=== PATIENT | male | born 1950 | race Caucasian/White ===

== ENCOUNTER 2023-11-12 16:35 | Emergency (ER) | payer OTHER ==
--- NOTE | 2023-11-12 17:36 | EDPHYS ---
Physician Documentation [facility] Name: Yves Dumont Age: 73 yrs Sex: Male : 1950 Arrival Date: 11/12/2023 Time: 16:35 Bed 19 Private MD: ED Physician Hardeep Quinones HPI: 11/11 17:46 This 73 yrs old Male presents to ER via Ambulatory with complaints of Post Surgical kb Bleeding. 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 States his paperwork says to go to the ER for any bleeding so that is why he came in. States he was talking on the phone when he felt his shirt become wet. Denies any strenuous activity. States he had a robot assisted radical prostatectomy on 11/02/23, followed up with surgeon on 11/09/23. Denies any other problems or bleeding since surgery. . Historical: - Allergies: 16:52 Sulfa (Sulfonamide Antibiotics); iw - PMHx: 16:52 prostate cancer; iw - Immunization history:: Adult Immunizations not up to date. - Infectious Disease History:: Denies. - Social history:: Smoking status: Patient denies any tobacco usage or history of. ROS: 17:37 Constitutional: As per HPI kb Exam: 17:40 Constitutional: This is a well developed, well nourished patient who is awake, alert, kb and in no acute distress. Head/Face: Normocephalic, atraumatic. ENT: Moist Mucous membranes Respiratory: Respirations even and unlabored. No increased work of breathing. Talking in full sentences Skin: Warm, dry with normal turgor. Normal color. MS/ Extremity: Pulses equal, no cyanosis. Neurovascular intact. Full, normal range of motion. Neuro: Awake and alert, GCS 15, oriented to person, place, time, and situation. Moves all extremities. Normal gait. 17:40 Cardiovascular: Rate: tachycardic, actual rate is 102 bpm, 17:40 Abdomen/GI: Inspection: bruising, anterior aspect of right lateral abdomen, posterior aspect of right lateral abdomen and right lower quadrant, Bowel sounds: normal, Palpation: soft, in all quadrants, mild abdominal tenderness, in the anterior aspect of right lateral abdomen, posterior aspect of right lateral abdomen and right lower quadrant, Vital Signs: 16:51 BP 158 / 86; Pulse 102; Resp 18; Temp 97.8; Pulse Ox 99% on R/A; iw 17:52 BP 127 / 75; Pulse 91; Resp 16; Temp 97.9(O); Pulse Ox 97% on R/A; Pain 0/10; tl4 17:52 Pain Scale: Adult tl4 MDM: 16:58 Patient medically screened. kb 17:40 Differential diagnosis: Wound dehiscence, hemoperitoneum, postop infection. Data kb reviewed: vital signs, nurses notes. 17:44 Test considered but Not performed: Labs: CBC and CMP considered but patient prefers not kb to have any testing done at this time. States he came just for the bleeding of his incision site and we have already taken care of that so he would like to go home. Pt will call surgeon on Tuesday morning. CT: CT abd/pelvis considered to rule out hemoperitoneum but patient states the bruising and mild tenderness has been present since surgery, his surgeon is seen it and was not concerned so he does not want to have a CT at this time. Patient will return for any new symptoms including pain, fever. Counseling: I had a detailed discussion with the patient and/or guardian regarding the historical points, exam findings, and any diagnostic results supporting the discharge/admit diagnosis, the need for outpatient follow up, a family practitioner, to return to the emergency department if symptoms worsen or persist or if there are any questions or concerns that arise at home. ED course: At bedside to reassess patient. Patient remains awake, alert and at baseline mentation. Patient appears stable. Patient exhibits no visible signs of distress. Patient respirations even and unlabored. I discussed patient's diagnosis, differential diagnosis, expected course of illness, at home recommendations and strict return precautions. I advised patient to follow-up with PCP in 2 to 3 days. I emphasized the need for close outpatient follow-up and care from primary care provider/specialist and went through careful and detailed return precautions with patient. Patient expressed full understanding of such and agrees with plan for discharge today. Feel patient is stable and appropriate for discharge and ongoing management of condition at home at this time.. Administered Medications: No medications were administered Disposition: 18:32 Co-signature as Attending Physician, Hardeep Quinones MD I reviewed the patient's care rt provided by the Advanced Practice Provider and agree with the diagnosis and treatment plan. Disposition Summary: 11/12/23 17:36 Discharge Ordered Notes: Location: Home kb Condition: Stable kb Diagnosis - Bleeding from surgical site kb Followup: kb - With: Private Physician - When: 2 - 3 days - Reason: Recheck today's complaints, Continuance of care, Re-evaluation by your physician Followup: kb - With: Emergency Department - When: As needed - Reason: Worsening of condition Discharge Instructions: - Discharge Summary Sheet kb - Wound Dehiscence, [id number] kb - How to Change Your Wound Dressing, [id number] kb Forms: - Medication Reconciliation Form kb - Thank You Letter kb - Patient Portal Instructions kb - Leadership Thank You Letter kb Signatures: Dispatcher [employer] Mayi Adair, TUNDE-Clara GRIFFITHS-Kerry Jaimes RN RN iw Hardeep Quinones MD MD rt Corrections: (The following items were deleted from the chart) 17:51 17:13 IV Saline Lock ordered. kb tl4
--- NOTE | 2023-11-12 17:36 | ER ---
Nurse's Notes [facility] Name: Yves Dumont Age: 73 yrs Sex: Male : 1950 Arrival Date: 11/12/2023 Time: 16:35 Bed 19 Private MD: Diagnosis: Bleeding from surgical site Presentation: 11/11 16:51 Chief complaint: Patient states: had prostatectomy on 11-01 at [facility] today the surgical laparoscopic site opened up on right side and has been bleeding. Coronavirus screen: At this time, the client does not indicate any symptoms associated with coronavirus-19. Ebola Screen: No symptoms or risks identified at this time. Initial Sepsis Screen: Does the patient meet any 2 criteria? No. Patient's initial sepsis screen is negative. Does the patient have a suspected source of infection? No. Patient's initial sepsis screen is negative. Risk Assessment: Do you want to hurt yourself or someone else? Patient reports no desire to harm self or others. Onset of symptoms was November 12, 2023. 16:51 Method Of Arrival: Ambulatory 16:51 Acuity: ANTHONY 3 iw Historical: - Allergies: 16:52 Sulfa (Sulfonamide Antibiotics); iw - PMHx: 16:52 prostate cancer; iw - Immunization history:: Adult Immunizations not up to date. - Infectious Disease History:: Denies. - Social history:: Smoking status: Patient denies any tobacco usage or history of. Screenin:22 [facility] ED Fall Risk Assessment (Adult) History of falling in the last 3 months, tl4 including since admission No falls in past 3 months (0 pts) Confusion or Disorientation No (0 pts) Intoxicated or Sedated No (0 pts) Impaired Gait No (0 pts) Mobility Assist Device Used No (0 pt) Altered Elimination No (0 pt) Score/Fall Risk Level 0 - 2 = Low Risk Oriented to surroundings, Maintained a safe environment, Educated pt \T\ family on fall prevention, incl call for assistance when getting out of bed, Assessed \T\ reinforced patient's understanding of fall precautions, Hourly rounding (assess needs \T\ fall precautionary measures) done, Used ambulatory aids as needed (educated on \T\ assisted with), Used gait belt as appropriate. Abuse screen: Denies threats or abuse. Denies injuries from another. Nutritional screening: No deficits noted. Tuberculosis screening: No symptoms or risk factors identified. Assessment: 17:10 General: Appears in no apparent distress. Behavior is calm, cooperative. Pain: Denies tl4 pain. Neuro: Level of Consciousness is awake, alert, obeys commands, Oriented to person, place, time, situation, Moves all extremities. Gait is steady, Speech is normal, Facial symmetry appears normal. Cardiovascular: Capillary refill < 3 seconds Patient's skin is warm and dry. Respiratory: Airway is patent Respiratory effort is even, unlabored, Respiratory pattern is regular, symmetrical, Breath sounds are clear bilaterally. GI: No signs and/or symptoms were reported involving the gastrointestinal system. : No signs and/or symptoms were reported regarding the genitourinary system. EENT: No signs and/or symptoms were reported regarding the EENT system. Derm: No signs and/or symptoms reported regarding the dermatologic system. Musculoskeletal: No signs and/or symptoms reported regarding the musculoskeletal system. Vital Signs: 16:51 BP 158 / 86; Pulse 102; Resp 18; Temp 97.8; Pulse Ox 99% on R/A; iw 17:52 BP 127 / 75; Pulse 91; Resp 16; Temp 97.9(O); Pulse Ox 97% on R/A; Pain 0/10; tl4 17:52 Pain Scale: Adult tl4 ED Course: 16:37 Patient arrived in ED. mr 16:52 Triage completed. iw 16:52 Arm band placed on. iw 16:58 Mayi Austin FNP-C is [facility]. kb 16:58 Hardeep Quinones MD is Attending Physician. kb 17:05 Dave Hargrove, MYRIAM is Primary Nurse. tl4 17:30 Patient has correct armband on for positive identification. Placed in gown. Bed in low tl4 position. Call light in reach. Side rails up X 1. Adult w/ patient. Provided Education on: ED process. Client placed on continuous cardiac and pulse oximetry monitoring. NIBP monitoring applied. Door closed. Noise minimized. Moved to private room. 17:55 No provider procedures requiring assistance completed. Patient did not have IV access tl4 during this emergency room visit. Administered Medications: No medications were administered Medication: 17:05 VIS not applicable for this client. tl4 Outcome: 17:36 Discharge ordered by MD. kb 17:55 Discharged to home ambulatory, with family, tl4 17:55 Condition: good 17:55 Discharge instructions given to patient, family, Instructed on discharge instructions, follow up and referral plans. Demonstrated understanding of instructions, follow-up care, 17:55 Patient left the ED. tl4 Signatures: Mayi Austin, DUAL RATE DEALER-C DUAL RATE DEALER-Ckb Izabel Linares, Reg Reg mr Kerry Huerta, RN RN iw Dave Hargrove RN RN tl4
[2023-11-12 18:31] VITALS: BP 127/75; TEMP 97.9; O2SAT 97
== END 2023-11-12 17:55 | disposition home or self-care (01) ==
LOC: ER 16:35
DX: L76.22 Postprocedural hemorrhage of skin and subcutaneous tissue following other procedure (principal); Z98.890 Other specified postprocedural states; Z85.46 Personal history of malignant neoplasm of prostate; Z88.2 Allergy status to sulfonamides
CPT/HCPCS: 99283

== ENCOUNTER 2023-11-13 12:59 | Emergency (ER) | payer OTHER ==
--- NOTE | 2023-11-13 16:24 | ER ---
Nurse's Notes [facility] Name: Yves Dumont Age: 73 yrs Sex: Male : 1950 Arrival Date: 11/13/2023 Time: 12:59 Bed IW9 Private MD: Diagnosis: Postsurgical bleeding Presentation: 11/12 13:08 Chief complaint: Patient states: Prostatectomy 10. 1 suture site opened up and he ll1 came here yesterday. Came today for wound recheck and dressing change. No fever. Coronavirus screen: Client denies travel out of the [place] in the last 14 days. At this time, the client does not indicate any symptoms associated with coronavirus-19. Ebola Screen: Patient denies travel to an Ebola-affected area in the 21 days before illness onset. Initial Sepsis Screen: Does the patient meet any 2 criteria? No. Patient's initial sepsis screen is negative. Does the patient have a suspected source of infection? No. Patient's initial sepsis screen is negative. Risk Assessment: Do you want to hurt yourself or someone else? Patient reports no desire to harm self or others. Onset of symptoms was November 12, 2023. 13:08 Method Of Arrival: Ambulatory ll1 13:08 Acuity: ANTHONY 4 ll1 Triage Assessment: 13:10 General: Appears in no apparent distress. Behavior is calm, cooperative, appropriate ll1 for age. Pain: Denies pain. Derm: Reports R sided abdominal wound was draining blood yesterday, scant drainage today. No fevers. Historical: - Allergies: 13:09 Sulfa (Sulfonamide Antibiotics); ll1 - PMHx: 13:09 Prostate Cancer; ll1 - PSHx: 13:09 prostatectomy (Prostate Cancer); ll1 - Immunization history:: Adult Immunizations up to date. - Infectious Disease History:: Denies. - Social history:: Smoking status: Patient denies any tobacco usage or history of. Assessment: 15:00 Reassessment: not in lobby when called to room. ll1 Vital Signs: 13:08 BP 154 / 103; Pulse 89; Resp 17; Temp 97.1; Pulse Ox 99% ; ll1 ED Course: 13:03 Patient arrived in ED. rg4 13:04 Nett[facility]varez [facility] 7 13:04 Hardeep uQinones MD is Attending Physician. 7 13:09 Triage completed. ll1 13:10 Arm band placed on Patient placed in an exam room, on a stretcher. 1 16:24 Kerry Huerta, RN is Primary Nurse. iw Administered Medications: No medications were administered Outcome: 16:24 Discharge ordered by . 7 16:25 Patient left the ED. iw Signatures: Kerry Huerta, RN RN Zuleyma Bar 4 Nikita Casey RN RN 1 Nettie Alvarez, WEB PRESS ROLL TENDER WEB PRESS ROLL TENDER [facility]
--- NOTE | 2023-11-13 16:24 | EDPHYS ---
Physician Documentation [facility] Name: Yves Dumont Age: 73 yrs Sex: Male : 1950 Arrival Date: 11/13/2023 Time: 12:59 Bed IW9 Private MD: ED Physician Hardeep Quinones HPI: 11/12 13:08 This 73 yrs old Male presents to ER via Ambulatory with complaints of Wound Check. 7 13:08 The patient reports that he had a laparoscopic radical prostatectomy on November 01. He jh7 reports that the surgical wound began to bleed yesterday around 3 PM. He was seen yesterday evening and the dressing was changed. He request another dressing change and would like the site assessed before he sees his surgeon tomorrow. Denies fever. Historical: - Allergies: 13:09 Sulfa (Sulfonamide Antibiotics); ll1 - PMHx: 13:09 Prostate Cancer; ll1 - PSHx: 13:09 prostatectomy (Prostate Cancer); ll1 - Immunization history:: Adult Immunizations up to date. - Infectious Disease History:: Denies. - Social history:: Smoking status: Patient denies any tobacco usage or history of. ROS: 13:08 Constitutional: Per HPI jh7 Exam: 13:08 Constitutional: This is a well developed, well nourished patient who is awake, alert, jh7 and in no acute distress. Head/Face: Normocephalic, atraumatic. Eyes: Pupils equal round and reactive to light, extra-ocular motions intact. Lids and lashes normal. Conjunctiva and sclera are non-icteric and not injected. Cornea within normal limits. Periorbital areas with no swelling, redness, or edema. Neck: Trachea midline, no thyromegaly or masses palpated, and no cervical lymphadenopathy. Supple, full range of motion without nuchal rigidity, or vertebral point tenderness. No Meningismus. Cardiovascular: Regular rate and rhythm with a normal S1 and S2. No gallops, murmurs, or rubs. Normal PMI, no JVD. No pulse deficits. Respiratory: Lungs have equal breath sounds bilaterally, clear to auscultation and percussion. No rales, rhonchi or wheezes noted. No increased work of breathing, no retractions or nasal flaring. Back: No spinal tenderness. No costovertebral tenderness. Full range of motion. Skin: Warm, dry with normal turgor. Normal color with no rashes, no lesions, and no evidence of cellulitis. MS/ Extremity: Pulses equal, no cyanosis. Neurovascular intact. Full, normal range of motion. Neuro: Awake and alert, GCS 15, oriented to person, place, time, and situation. Normal gait. 13:08 Skin: Wound recheck: Surgical site on right side of the abdomen with dried blood noted on the gauze. The wound has minimal bleeding and no signs or symptoms of infection., Vital Signs: 13:08 BP 154 / 103; Pulse 89; Resp 17; Temp 97.1; Pulse Ox 99% ; ll1 MDM: 13:05 Patient medically screened. jh7 14:00 Differential diagnosis: Surgical wound complication, patient in need of dressing 7 change. Data reviewed: vital signs, nurses notes. ED course: Was informed by the nurse that the patient left before he could be called back for his dressing change. Discharge paperwork printed.. 11/12 13:11 Order name: Dressing - Wound: surgicel and gauze with paper tape [facility] Administered Medications: No medications were administered Disposition: 19:22 Co-signature as Attending Physician, Hardeep Quinones MD I reviewed the patient's care rt provided by the Advanced Practice Provider and agree with the diagnosis and treatment plan. Disposition Summary: 11/13/23 16:24 Discharge Ordered Notes: Location: Home [facility] Problem: new [facility] Symptoms: are unchanged jh Condition: Stable jh7 Diagnosis - Postsurgical bleeding [facility] Followup: [facility] - With: Private Physician - When: Tomorrow - Reason: Recheck today's complaints Discharge Instructions: - Discharge Summary Sheet [facility] - Laparoscopic Radical Prostatectomy, Care After jh7 - Laparoscopic Radical Prostatectomy [facility] Forms: - Medication Reconciliation Form 7 - Thank You Letter [facility] - Patient Portal Instructions [facility] - Leadership Thank You Letter [facility] Signatures: Nikita Casey RN RN 1 Nettie Alvarez FNP COSTUME SPECIALIST [facility] Hardeep Quinones MD MD rt Corrections: (The following items were deleted from the chart) 16:20 13:08 The patient reports that he had a laparoscopic radical prostatectomy on November 01. jh7 He reports that the surgical wound began to bleed yesterday around 3 PM. He was seen yesterday evening and the dressing was changed. He request another dressing change and would like the site assessed before he sees his surgeon tomorrow.. jh7
[2023-11-13 16:46] VITALS: BP 154/103; TEMP 97.1; O2SAT 99
== END 2023-11-13 16:25 | disposition home or self-care (01) ==
LOC: ER 12:59
DX: L76.22 Postprocedural hemorrhage of skin and subcutaneous tissue following other procedure (principal); Z85.46 Personal history of malignant neoplasm of prostate; Z88.2 Allergy status to sulfonamides
CPT/HCPCS: 99281

== ENCOUNTER 2024-07-04 08:54 | Emergency (ER) | payer OTHER ==
--- NOTE | 2024-07-04 09:24 | RAD REPORT ---
EXAM: Hand Left 3 View HISTORY: Trauma;Pain COMPARISON: None FINDINGS: Bones: No acute fracture identified. Alignment:No significant malalignment. Degenerative changes:Degenerative changes present.. This is most pronounced at the DIP joints and at the base of the thumb where the findings are moderate. Other: Soft tissue laceration to the tip of the third finger. No radiopaque foreign body. IMPRESSION: No evidence of acute osseous abnormality involving the imaged hand.
[2024-07-04] MEDS ORDERED: TDAP (DIPHTH,PERTUSS(ACELL),TET VAC) 0.5 ML VIAL IMVAC ONE (09:35)
[2024-07-04] MEDS ORDERED: LIDOCAINE 1% 20 ML MDV ONE (09:47)
[2024-07-04] MEDS ORDERED: LIDOCAINE 1% MPF 30 ML VIAL ONE (09:50)
--- NOTE | 2024-07-04 10:02 | ER ---
Nurse's Notes [facility] Name: Yves Dumont Age: 74 yrs Sex: Male : 1950 Arrival Date: 07/04/2024 Time: 08:54 Bed 6 Private MD: Diagnosis: Hand Laceration/ Open wound of hand Presentation: 07/04 09:07 Chief complaint: Patient states: LEFT HAND 1ST AND 2ND FINGER DISTAL INJURY WITH TABLE bp SAW. Coronavirus screen: At this time, the client does not indicate any symptoms associated with coronavirus-19. Ebola Screen: No symptoms or risks identified at this time. Complicating Factors: There are no complicating factors for this patient. Initial Sepsis Screen: Does the patient meet any 2 criteria? No. Patient's initial sepsis screen is negative. Does the patient have a suspected source of infection? No. Patient's initial sepsis screen is negative. Risk Assessment: Do you want to hurt yourself or someone else? Patient reports no desire to harm self or others. Onset of symptoms was July 04, 2024 at 07:15. 09:07 Method Of Arrival: Ambulatory bp 09:07 Acuity: ANTHONY 3 bp Triage Assessment: 09:07 General: Appears in no apparent distress. Behavior is calm, cooperative, appropriate bp for age. Pain: Complains of pain in left index fingernail and left middle fingernail. EENT: No deficits noted. Neuro: No deficits noted. Cardiovascular: No deficits noted. Respiratory: No deficits noted. GI: No signs and/or symptoms were reported involving the gastrointestinal system. : No signs and/or symptoms were reported regarding the genitourinary system. Derm: No deficits noted. Musculoskeletal: No deficits noted. Injury Description: Laceration sustained to left index fingernail and left middle fingernail. Historical: - Allergies: 09:02 Sulfa (Sulfonamide Antibiotics); ll1 - PMHx: 09:02 Prostate Cancer; ll1 - PSHx: 09:02 prostatectomy (te); ll1 - Immunization history:: Adult Immunizations up to date. - Infectious Disease History:: Denies. - Social history:: Smoking status: Patient denies any tobacco usage or history of. Screenin:09 [facility] ED Fall Risk Assessment (Adult) History of falling in the last 3 months, bp including since admission No falls in past 3 months (0 pts) Confusion or Disorientation No (0 pts) Intoxicated or Sedated No (0 pts) Impaired Gait No (0 pts) Mobility Assist Device Used No (0 pt) Altered Elimination No (0 pt) Score/Fall Risk Level 0 - 2 = Low Risk Oriented to surroundings. Abuse screen: Denies threats or abuse. Denies injuries from another. Nutritional screening: No deficits noted. Tuberculosis screening: No symptoms or risk factors identified. Assessment: 09:09 General: Appears in no apparent distress. Behavior is calm, cooperative, appropriate bp for age. 09:10 Injury Description: Laceration sustained to left index fingernail is jagged, 0.5 to 2.5 bp cm long, not bleeding, is bleeding a small amount. Vital Signs: 09:07 BP 162 / 105; Pulse 87; Resp 16; Temp 98; Pulse Ox 100% ; Weight 86.18 kg; Height 5 ft. bp 8 in. ; 09:07 Body Mass Index 28.89 (86.18 kg, 172.72 cm) bp ED Course: 08:57 Patient arrived in ED. sj2 08:59 Alex Shaffer DO is Attending Physician. ms3 09:02 Arm band placed on Patient placed in an exam room, on a stretcher. ll1 09:07 Connor Gates, RN is Primary Nurse. bp 09:08 Triage completed. bp 09:09 Patient has correct armband on for positive identification. bp 09:21 Hand Left 3 View XRAY In Process Unspecified. EDMS 10:02 Spike Rodriguez DO is Referral Physician. ms3 10:27 No provider procedures requiring assistance completed. Patient did not have IV access bp during this emergency room visit. Wound care: to laceration was cleaned with Betadine, dressed with Neosporin, Patient tolerated well. 10:28 Provided Education on: na. bp Administered Medications: 09:43 Drug: Boostrix Tdap IM 0.5 ml IM once; as a single dose Route: IM; Site: right deltoid; ap3 10:04 Follow up: Response: No adverse reaction bp 10:04 Drug: Lidocaine Infiltration (1 %) 10 ml 20 ml Infiltration once; to bedside {Note: AT bp BEDSIDE.} Volume: 20 ml; Route: Infiltration; Medication: 09:09 VIS not applicable for this client. bp Outcome: 10:02 Discharge ordered by . ms3 10:27 Discharged to home ambulatory, bp 10:27 Condition: stable 10:27 Discharge instructions given to patient, Instructed on discharge instructions, follow up and referral plans. wound care, Demonstrated understanding of instructions, follow-up care, medications, wound care, 10:28 Patient left the ED. bp Signatures: Dispatcher [employer] EDMS Connor Gates RN RN bp Naya Mendez RN RN albert3 Nikita Casey RN RN ll1 Alex Shfafer DO DO ms3 Yael Chung sj2 Corrections: (The following items were deleted from the chart) 10:28 10:27 Discharge instructions given to patient, Instructed on discharge instructions, bp follow up and referral plans. medication usage, wound care, Demonstrated understanding of instructions, follow-up care, medications, wound care, bp
--- NOTE | 2024-07-04 10:02 | EDPHYS ---
Physician Documentation [facility] Name: Yves Dumont Age: 74 yrs Sex: Male : 1950 Arrival Date: 07/04/2024 Time: 08:54 Bed 6 Private MD: ED Physician Alex Shaffer HPI: 07/04 09:20 This 74 yrs old Male presents to ER via Ambulatory with complaints of Laceration To ms3 Hand. 09:20 Yves Dumont, a 73-year-old male, presents to the emergency department following an injury ms3 to his left middle finger. The patient reports the pain as mild, noting it becomes throbbing occasionally but is not severe at present. The injury occurred due to contact with a table saw blade, which resulted in a cut to the finger tip. Patient is not aware when he received his last tetanus. Historical: - Allergies: 09:02 Sulfa (Sulfonamide Antibiotics); ll1 - PMHx: 09:02 Prostate Cancer; ll1 - PSHx: 09:02 prostatectomy (te); ll1 - Immunization history:: Adult Immunizations up to date. - Infectious Disease History:: Denies. - Social history:: Smoking status: Patient denies any tobacco usage or history of. ROS: 09:20 Constitutional: Negative for fever, and chills. Cardiovascular: Negative for chest ms3 pain, and palpitations. Respiratory: Negative for shortness of breath, cough, wheezing, and pleuritic chest pain, Abdomen/GI: Negative for abdominal pain, nausea, vomiting, diarrhea, and constipation, 09:20 Skin: Positive for laceration(s), Exam: 09:20 Constitutional: This is a well developed, well nourished patient who is awake, alert, ms3 and in no acute distress. Head/Face: Normocephalic, atraumatic. Chest/axilla: Normal chest wall appearance and motion. Nontender with no deformity. Cardiovascular: Regular rate and rhythm with a normal S1 and S2. No gallops, murmurs, or rubs. Normal PMI, no JVD. No pulse deficits. Respiratory: Lungs have equal breath sounds bilaterally, clear to auscultation and percussion. No rales, rhonchi or wheezes noted. No increased work of breathing, no retractions or nasal flaring. Abdomen/GI: Soft, non-tender, with normal bowel sounds. No distension or tympany. No guarding or rebound. No evidence of tenderness throughout. 09:20 Skin: injury, laceration(s), the wound is approximately 2 cm(s), of the Distal tip left middle finger, Vital Signs: 09:07 BP 162 / 105; Pulse 87; Resp 16; Temp 98; Pulse Ox 100% ; Weight 86.18 kg; Height 5 ft. bp 8 in. ; 09:07 Body Mass Index 28.89 (86.18 kg, 172.72 cm) bp MDM: 09:07 Medical Screening Exam initiated ms3 09:20 Differential diagnosis: Laceration vs Open Fracture. ms3 10:03 Data reviewed: vital signs, nurses notes, radiologic studies, and as a result, I will ms3 discharge patient. I considered the following discharge prescriptions or medication management in the emergency department Medications were administered in the Emergency Department. See MAR. Independent interpretation of the following test(s) in the Emergency Department X-Ray: My interpretation is Left hand x-ray reviewed by me does not reveal fracture. Counseling: I had a detailed discussion with the patient and/or guardian regarding the historical points, exam findings, and any diagnostic results supporting the discharge/admit diagnosis, radiology results, the need for outpatient follow up, to return to the emergency department if symptoms worsen or persist or if there are any questions or concerns that arise at home. Special discussion: I discussed with the patient/guardian in detail that at this point there is no indication for admission to the hospital. It is understood, however, that if the symptoms persist or worsen the patient needs to return immediately for re-evaluation. ED course: Discussed left hand x-ray with patient that does not reveal fracture. After left middle finger digital block laceration cleaned revealing missing tissue. Discussed with patient laceration will need to heal by secondary intention. Patient to follow-up with primary care physician in 2 to 3 days. Patient understands and agrees with plan. All questions were answered. Return precautions discussed include worsening symptoms, or any other concerns.. 07/04 09:07 Order name: Hand Left 3 View XRAY; Complete Time: 09:43 ms3 07/04 09:44 Order name: Gloves, Sterile; Complete Time: :48 ms3 07/04 09:44 Order name: Setup Suture Tray; Complete Time: 09:48 ms3 Administered Medications: 09:43 Drug: Boostrix Tdap IM 0.5 ml IM once; as a single dose Route: IM; Site: right deltoid; ap3 10:04 Follow up: Response: No adverse reaction bp 10:04 Drug: Lidocaine Infiltration (1 %) 10 ml 20 ml Infiltration once; to bedside {Note: AT bp BEDSIDE.} Volume: 20 ml; Route: Infiltration; Disposition Summary: 07/04/24 10:02 Discharge Ordered Notes: Location: Home ms3 Condition: Stable ms3 Diagnosis - Hand Laceration/ Open wound of hand ms3 Followup: ms3 - With: Spike Rodriguez, - When: 2 - 3 days - Reason: Recheck today's complaints Discharge Instructions: - Discharge Summary Sheet ms3 - Laceration Care, Adult, [id number] ms3 Forms: - Medication Reconciliation Form ms3 - Antibiotic Education ms3 - Prescription Opioid Use ms3 - Patient Portal Instructions ms3 - Leadership Thank You Letter ms3 Signatures: Dispatcher [employer] EDConnor Sifuentes, RN RN bp Naya Mendez RN RN ap3 Nikita Casey RN RN ll1 Alex Shaffer DO DO ms3 Corrections: (The following items were deleted from the chart) 09:08 09:08 Hand Left 3 View+RAD.RAD.BRZ ordered. EDWI EDMS 10:03 09:44 Sutures, Prolene ordered. ms3 ms3
[2024-07-04 10:33] VITALS: BP 162/105; TEMP 98; O2SAT 100
== END 2024-07-04 10:28 | disposition home or self-care (01) ==
LOC: ER 08:54
DX: S61.213A Laceration without foreign body of left middle finger without damage to nail, initial encounter (principal)
CPT/HCPCS: 73130; 96372; 99284; J2003